=== PATIENT | female | born 1950 | race Caucasian/White ===

== ENCOUNTER → 2016-09-11 | Outpatient (CLI) | payer MEDICARE, BC ==
[~2016-09-11] MED LIST: AMBIEN PO; AMBIEN10 MG PO; AMLODIPINE BESYL5 MG PO; ATENOLOL PO; AZITHROMYCIN250 MG PO; DARVOCET-N 1001 TAB PO; EFFEXOR XR PO; EFFEXOR XR75 MG PO; FLEXERIL10 MG PO; GABAPENTIN600 MG PO; GLUCOPHAGE500 M1 PO; KEFLEX PO; KLONOPIN PO; NEURONTIN PO; NEURONTIN600 MG PO; OMNICEF300 M1 PO; PERCOCET 10/3251 TAB PO; PHENERGAN PO; PREDNISONE PO; PROTONIX PO; REQUIP1 MG PO; ROBAXIN PO; TYLENOL #3 PO; VICODIN PO; ZITHROMAX PO
--- NOTE | ~2016-09-11 | EKG ---
PATIENT: KAROLINA ELIAS UNIT #: [id number] Ventricular Rate: 98 BPM Atrial Rate: 98 BPM P-R Interval: 160 ms QRS Duration: 78 ms Q-T Interval: 356 ms QTC Calculation(Bezet): 454 ms P [place]: 67 degrees Calculated R [place]: 14 degrees Calculated T [place]: 59 degrees Diagnosis Line: Normal sinus rhythm Diagnosis Line: Nonspecific T wave abnormality Diagnosis Line: Abnormal ECG Diagnosis Line: When compared with ECG of 07-JUL-2015 12:05, Diagnosis Line: Vent. rate has increased BY 35 BPM Diagnosis Line: Nonspecific T wave abnormality, worse in Inferior Diagnosis Line: leads Diagnosis Line: Nonspecific T wave abnormality no longer evident Diagnosis Line: in Anterior leads Diagnosis Line: Confirmed by JODI RUBI MD ([id number]) on 09/16/2016 Diagnosis Line: 2:36:03 PM INTERPRETING MD: ELICIA THOMPSON
--- NOTE | ~2016-09-11 | CR63 ---
[facility] A Service of [facility] & [facility] RADIOLOGY TEXT RESULTS PATIENT: KAROLINA ELIAS LOCATION: [facility] : 48 UNIT #: [id number] AGE: [address]: Monty Sun MD SEX: F ORDER DR: [id number] [facility] [address] [facility] [place], [place] [address] [id number] O MR#: [id number] Acc #: [id number] NAME: KAROLINA ELIAS : 1950 SEX: F STUDY DATE/TIME: 09/11/2016 13:13 UNIT: [facility] ROOM: STUDY DESCRIPTION: CR Chest 2 View Attending Physician: Monty Sun M.D. Referring Physician: Monty Sun M.D. Ordering Physician: Monty Sun M.D. Primary Care Physician: Can Patel M.D. MEDICAL IMAGING REPORT This report is preliminary unless electronic signature is present EXAM Two-view chest, 09/11/2016. HISTORY 66-year-old female with congestion for 4 months. Smoker. COMPARISON Chest, 07/07/2015. FINDINGS Two views of the chest demonstrate clear lungs. No pleural effusion or pneumothorax. Heart size and mediastinum are normal. Pulmonary vasculature normal. IMPRESSION No acute cardiopulmonary findings. Dictated by... Monty Milan M.D. THIS IS AN ELECTRONICALLY VERIFIED REPORT Monty Milan M.D. at 09/16/2016 10:26 AM TERESITA/lane TD: 09/12/2016 00:58 JOB #: [id number] MEDICAL IMAGING REPORT Page 1 of 1 COPY
[2016-09-11 13:01] LABS: HEMATOCRIT 36.5 % (35.0-45.0); HEMOGLOBIN 11.6 gm/dL (12.0-16.0); MEAN CORPUSCULAR HEMOGLOBIN 25.5 PG (28-34); MEAN CORPUSCULAR HGB CONC 31.9 g/dL (30-36); MEAN PLATELET VOLUME 7.4 FL (6.5-11.5); RED BLOOD COUNT 4.56 X10e (3.90-5.30); RED CELL DISTRIBUTION WIDTH 15.6 % (11.0-15.5); WHITE BLOOD COUNT 9.8 X10e3 (4.0-10.5)
[2016-09-11 13:47] LABS: INR 0.9; PARTIAL THROMBOPLASTIN TIME 24.7 SECONDS (23.5-31.3); PROTHROMBIN TIME (PATIENT) 10.3 SECONDS (10.0-11.7)
== END | disposition home or self-care (01) ==
LOC: CLAB 12:14
PROVIDERS: Otolaryngology
DX: Z01.818 Encounter for other preprocedural examination (principal); C32.8 Malignant neoplasm of overlapping sites of larynx
CPT/HCPCS: 36415; 71020; 85027; 85610; 85730; 93005

== ENCOUNTER → 2016-11-23 | Outpatient (CLI) | payer MEDICARE, BC ==
--- NOTE | ~2016-11-23 | MY30 ---
[facility] A Service of [facility] RADIOLOGY TEXT RESULTS PATIENT: KAROLINA ELIAS LOCATION: [facility] : 48 UNIT #: [id number] AGE: [address]: Can Patel MD SEX: F ORDER DR: [id number] [address] [address] [id number] O MR#: [id number] Acc #: [id number] NAME: KAROLINA ELIAS : 1950 SEX: F STUDY DATE/TIME: 11/23/2016 14:55 UNIT: [facility] ROOM: STUDY DESCRIPTION: MY SCREEN SAMAN BILAT DIGITAL Attending Physician: Can Patel M.D. Referring Physician: Can Patel M.D. Ordering Physician: Can Patel M.D. Primary Care Physician: Can Patel M.D. MEDICAL IMAGING REPORT This report is preliminary unless electronic signature is present. EXAM Bilateral digital screening mammogram with CAD 11/23/2016 INDICATION 66-year-old female for routine screening. No reported problems. No personal or family history of breast cancer. History of breast reduction 1980. TECHNIQUE CC and MLO views of the breasts were obtained and reviewed with an FDA-approved CAD device. COMPARISON 05/11/2014, 12/06/2009, 02/22/2008. FINDINGS Breast parenchyma is composed of scattered fibroglandular densities and unchanged. Scar marker on the right unchanged. There is no new dominant nodule, mass or suspicious cluster of microcalcifications. An exaggerated CC lateral view was also performed on the right and is negative. IMPRESSION Benign screening mammogram. Postop changes of breast reduction procedure. 1-year followup recommended. Patients over the age of 40 are entered into a reminder system with target due date for the next mammogram. A result letter will also be sent to the patient. BIRADS: 2 Benign finding [facility] A Service of [facility] RADIOLOGY TEXT RESULTS PATIENT: KAROLINA ELIAS LOCATION: [facility] : 48 UNIT #: [id number] AGE: [address]: Can Patel MD SEX: F ORDER DR: Dictated by... Tim Fried M.D. THIS IS AN ELECTRONICALLY VERIFIED REPORT Tim Fried M.D. at 11/24/2016 2:32 PM HEMANT/shereen TD: 11/24/2016 09:41 JOB #: [id number] MEDICAL IMAGING REPORT Page 1 of 1
== END | disposition home or self-care (01) ==
LOC: SMAM 11-02 15:15
DX: Z12.31 Encounter for screening mammogram for malignant neoplasm of breast (principal); Z98.890 Other specified postprocedural states
CPT/HCPCS: G0202